=== PATIENT | male | born 1970 | race Caucasian/White ===

== ENCOUNTER → 2016-11-02 | Outpatient (CLI) | payer OTHER ==
[2016-11-02 08:27] LABS: CHLORIDE,CL 108 mmol/L (98-110); SODIUM,NA 141 mmol/L (136-146)
== END ==
LOC: MW.CHIM 07:34
PROVIDERS: ATTEND Internal Medicine
DX: I10 Essential (primary) hypertension (principal); R53.83 Other fatigue
CPT/HCPCS: 36415; 80053; 80061; 84402; 84403; 84443; 85025

== ENCOUNTER 2017-08-24 08:08 | Emergency (ER) | payer OTHER ==
--- NOTE | 2017-08-24 08:32 | EDM.PDOC ---
ED HPI GENERAL MEDICAL PROBLEM - General Chief Complaint: General Stated Complaint: HEADACHE AND BODYACHE Time Seen by Provider: 08/24/17 08:26 - History of Present Illness INITIAL COMMENTS - FREE TEXT/NARRATIVE: HISTORY AND PHYSICAL: History of present illness: Patient is 47-year-old white male presents with 2-3 day history of tactile fever chills cough he did not receive an influenza immunization this year he states he presents today with chills and body aches. He denies shortness of breath vomiting diarrhea or other complaints Review of systems: As per history of present illness and below otherwise all systems reviewed and negative. Past medical history: As per history of present illness and as reviewed below otherwise noncontributory. Surgical history: As per history of present illness and as reviewed below otherwise noncontributory. Social history: No reported history of drug or alcohol abuse. Family history: As per history of present illness and as reviewed below otherwise noncontributory. Physical exam: HEENT: Atraumatic, normocephalic, pupils reactive, negative for conjunctival pallor or scleral icterus, mucous membranes moist, throat clear, neck supple, nontender, trachea midline. Lungs: Clear to auscultation, breath sounds equal bilaterally, chest nontender. Heart: S1S2, regular, negative for clicks, rubs, or JVD. Abdomen: Soft, nondistended, nontender. Negative for masses or hepatosplenomegaly. Negative for costovertebral tenderness. Pelvis: Stable nontender. Genitourinary: Deferred. Rectal: Deferred. Extremities: Atraumatic, negative for cords or calf pain. Neurovascular unremarkable. Neuro: Awake, alert, oriented. Cranial nerves II through XII unremarkable. Cerebellum unremarkable. Motor and sensory unremarkable throughout. Exam nonfocal. Diagnostics: Chest x-ray influenza screen Therapeutics: None Impression: #1 viral syndrome Definitive disposition and diagnosis as appropriate pending reevaluation and review of above. Generalized Pain Score (Numeric/FACES): 5 - Related Data Allergies Allergy/AdvReac Type Severity Reaction Status Date / Time No Known Allergies Allergy Verified 08/24/17 08:21 Home Meds: Home Meds . [No Known Home Meds] 08/24/17 [History] Past Medical History - Past Health History Medical/Surgical History: Denies Medical/Surgical History - Infectious Disease History Infectious Disease History: Reports: Chicken Pox, Measles, Mumps Social & Family History - Family History Family Medical History: Noncontributory - Tobacco Use Smoking Status *Q: Never Smoker - Recreational Drug Use Recreational Drug Use: No ED ROS GENERAL - Review of Systems Review Of Systems: ROS reveals no pertinent complaints other than HPI. ED EXAM, GENERAL - Physical Exam Exam: See Below (See dictated) Course - Vital Signs Last Recorded V/S: Last Vital Signs Temp 36.3 C 08/24/17 08:19 Pulse 114 H 08/24/17 08:19 Resp 20 08/24/17 08:19 BP 153/90 H 08/24/17 08:19 Pulse Ox 94 L 08/24/17 08:19 - Orders/Labs/Meds Orders: Active Orders 24 hr Category Date Time Status Chest 2V [CR] Stat Exams 08/24/17 08:29 Taken Departure - Departure Time of Disposition: 09:27 Disposition: Home, Self-Care 01 Condition: Good Clinical Impression: Pneumonia, Influenza - Discharge Information Referrals: PCP,None [Primary Care Provider] - Forms: ED Department Discharge Additional Instructions: The following information is given to patients seen in the emergency department who are being discharged to home. This information is to outline your options for follow-up care. We provide all patients seen in our emergency department with a follow-up referral. The need for follow-up, as well as the timing and circumstances, are variable depending upon the specifics of your emergency department visit. If you don't have a primary care physician on staff, we will provide you with a referral. We always advise you to contact your personal physician following an emergency department visit to inform them of the circumstance of the visit and for follow-up with them and/or the need for any referrals to a consulting specialist. The emergency department will also refer you to a specialist when appropriate. This referral assures that you have the opportunity for followup care with a specialist. All of these measure are taken in an effort to provide you with optimal care, which includes your followup. Under all circumstances we always encourage you to contact your private physician who remains a resource for coordinating your care. When calling for followup care, please make the office aware that this follow-up is from your recent emergency room visit. If for any reason you are refused follow-up, please contact the [facility] emergency department at and asked to speak to the emergency department charge nurse. Levaquin as prescribed push fluids Motrin/Tylenol as directed follow private medical doctor as needed as discussed and return as needed as discussed - My Orders Last 24 Hours: My Active Orders 08/24/17 08:29 Chest 2V [CR] Stat - Assessment/Plan Last 24 Hours: My Active Orders 08/24/17 08:29 Chest 2V [CR] Stat
--- NOTE | 2017-08-26 09:18 | CR ---
EXAM DATE: 08/24/17 PATIENT'S AGE: 47 Patient: FABRICE QUAN Facility: [place], [place] Site . Site : 1970 Study: XRay Chest [id number]/24/2018 8:49:56 AM Ordering Physician: Luisa Jaffe Final Report: INDICATION: Cough. TECHNIQUE: PA and lateral views of the chest. COMPARISON: None. FINDINGS: Low lung volumes. Cardiac, mediastinal and hilar contours are within normal limits. Normal pulmonary vasculature. Mild bibasilar atelectasis. Patchy left basilar airspace opacities are concerning for pneumonia. No pleural fluid or pneumothorax. IMPRESSION: Patchy left basilar airspace opacities concerning for pneumonia. Dictated by Rusty Mccormick MD @ 08/24/2017 8:53:14 AM Dictated by: Rusty Mccormick MD @ 08/24/2017 08:53:19 (Electronic Signature) Report Signed by Proxy. [email or web address]
== END 2017-08-24 09:40 | disposition home or self-care (01) ==
LOC: MW.ED 08:08
DX: J10.00 Influenza due to other identified influenza virus with unspecified type of pneumonia (principal)
CPT/HCPCS: 71046; 71046-26; 87804; 99283

== ENCOUNTER 2019-08-29 20:40 | Emergency (ER) | payer OTHER ==
[2019-08-29] MEDS ORDERED: Ketorolac 60 MG/2 ML SDV IM ONE (21:00)
[2019-08-29] MEDS ORDERED: Diazepam 5 MG Tab PO ONE (21:00)
--- NOTE | 2019-08-29 21:19 | EDM.PDOC ---
ED HPI GENERAL MEDICAL PROBLEM - General Chief Complaint: Back Pain or Injury Stated Complaint: BACK INJURY Time Seen by Provider: 08/29/19 21:14 Source of Information: Reports: Patient History Limitations: Reports: No Limitations - History of Present Illness INITIAL COMMENTS - FREE TEXT/NARRATIVE: 49-year-old male presents to the emergency room with chief complaint of lower back pain. Patient states he was doing his taxes and turned to the left and injured his back. Patient has a history of back injuries with an MRI in the past followed by the [facility]. Is under the care of the [facility] receiving physical therapy and does stretching. Patient only takes Jw aspirin for his back pain but today he cannot tolerate it. Onset: Today Duration: Hour(s):, Intermittent Location: Reports: Back Quality: Reports: Ache Severity: Mild Improves with: Reports: None Worsens with: Reports: None Associated Symptoms: Reports: No Other Symptoms back Pain Score (Numeric/FACES): 8 - Related Data Allergies Allergy/AdvReac Type Severity Reaction Status Date / Time No Known Allergies Allergy Verified 08/24/17 08:21 Home Meds: Home Meds . [No Known Home Meds] 08/24/17 [History] Past Medical History - Past Health History Medical/Surgical History: Denies Medical/Surgical History Musculoskeletal History: Reports: Back Pain, Chronic, Fracture Other Musculoskeletal History: pt reports [place] Neurological History: Reports: None Psychiatric History: Reports: None Endocrine/Metabolic History: Reports: None Hematologic History: Reports: None Immunologic History: Reports: None Oncologic (Cancer) History: Reports: None Dermatologic History: Reports: None - Infectious Disease History Infectious Disease History: Reports: Chicken Pox - Past Surgical History Head Surgeries/Procedures: Reports: None Social & Family History - Family History Family Medical History: Noncontributory - Tobacco Use Smoking Status *Q: Former Smoker Used Tobacco, but Quit: Yes Month/Year Tobacco Last Used: 2017 - Recreational Drug Use Recreational Drug Use: No ED ROS GENERAL - Review of Systems Review Of Systems: See Below Constitutional: Reports: No Symptoms HEENT: Reports: No Symptoms Respiratory: Reports: No Symptoms Cardiovascular: Reports: No Symptoms Endocrine: Reports: No Symptoms GI/Abdominal: Reports: No Symptoms : Reports: No Symptoms Musculoskeletal: Reports: Back Pain Skin: Reports: No Symptoms Neurological: Reports: No Symptoms Psychiatric: Reports: No Symptoms Hematologic/Lymphatic: Reports: No Symptoms Immunologic: Reports: No Symptoms ED EXAM,LOWER BACK PAIN/INJURY - Physical Exam Exam: See Below Text/Narrative:: 49-year-old male presents to the emergency room with back pain On exam patient has pain to the lower back on palpation neurovascular intact. Patient states this is similar to her previous episodes but a little worse. Patient has had a previous MRI within the last year and is followed at the [facility]. Exam Limited By: No Limitations General Appearance: Alert, Mild Distress Eye Exam: Bilateral Eye: Normal Fundi, Normal Inspection, PERRL Ears: Normal External Exam, Normal Canal, Hearing Grossly Normal Nose: Normal Inspection, Normal Mucosa Throat/Mouth: Normal Inspection, Normal Lips, Normal Teeth, Normal Oropharynx Head: Atraumatic Respiratory/Chest: No Respiratory Distress, Lungs Clear, Normal Breath Sounds, No Accessory Muscle Use Cardiovascular: Normal Peripheral Pulses, Regular Rate, Rhythm (Male) Exam: Deferred Rectal (Males) Exam: Deferred Extremities: Normal Inspection, Normal Range of Motion, Non-Tender, No Pedal Edema, Normal Capillary Refill Neurological: Alert, Normal Mood/Affect, Normal Dorsiflexion, CN II-XII Intact, Normal Plantar Flexion Psychiatric: Normal Affect, Normal Mood Skin Exam: Warm, Dry, Intact Course - Vital Signs Text/Narrative:: 49-year-old gentleman with back pain will be treated with pain medicine and muscle relaxers and discharged home. [facility] Last Recorded V/S: Last Vital Signs Temp 97.9 F 08/29/19 20:45 Pulse 79 08/29/19 20:45 Resp 18 08/29/19 20:45 BP 158/107 H 08/29/19 20:45 Pulse Ox 95 08/29/19 20:45 - Orders/Labs/Meds Meds: Medications Discontinued Medications Generic Name Dose Route Start Last Admin Trade Name Freq PRN Reason Stop Dose Admin Diazepam 10 mg 08/29/19 21:00 08/29/19 21:06 Valium. PO 08/29/19 21:01 10 mg ONETIME ONE Administration Ketorolac Tromethamine 60 mg 08/29/19 21:00 08/29/19 21:06 Toradol IM 08/29/19 21:01 60 mg ONETIME ONE Administration Departure - Departure Time of Disposition: 21:20 Disposition: Home, Self-Care 01 Condition: Good Clinical Impression: Back arthralgia - Discharge Information Instructions: Back Injury Prevention, [id number], Back Exercises, Easy-to- Read, Acute Back Pain, Adult Referrals: PCP,None [Primary Care Provider] - Sepsis Event Note - Evaluation Sepsis Screening Result: No Definite Risk - Focused Exam Vital Signs: Vital Signs Temp Pulse Resp BP Pulse Ox 08/29/19 20:45 97.9 F 79 18 158/107 H 95 Date Exam was Performed: 08/29/19 Time Exam was Performed: 21:14
== END 2019-08-29 21:33 | disposition home or self-care (01) ==
LOC: MW.ED 20:40
DX: M54.5 Low back pain (principal); Z87.891 Personal history of nicotine dependence
CPT/HCPCS: 96372; 99283; A9270; J1885; 99282